=== PATIENT | male | born 1970 | race African-American/Black ===

== ENCOUNTER 2017-01-13 17:36 | Emergency (ER) | payer BC ==
[~2017-01-13] VITALS: Ht 175.3 cm; Wt 95.3 kg
--- NOTE | ~2017-01-13 | EKG ---
[place] [address] [facility] [place] [address] ELECTROCARDIOGRAM REPORT Name: BRENDEN TALBOT Room #: CAITY Brink#: [id number] Admission: 01/13/17 Attend Phys: Discharge: 01/13/17 Date of : 66 Report #: [id number] THIS REPORT FOR: //name// [facility] ED Test Date: 2017-01-13 Test Time: 17:59:18 Pat Name: BRENDEN TALBOT Department: Room: Gender: Senior Software Tester: Xavier MAXWELL : 1970 Requested By: Jani Burgess Order Number: [id number] MD: Nima Proctor Measurements Intervals [place] Rate: 74 P: 69 W[place]: 141 QRS: 40 QRSD: 87 T: 45 QT: 371 QTc: 412 Interpretive Statements Sinus rhythm No significant abnormality No previous ECG available for comparison Electronically Signed On 01-14-2017 8:07:20 CDT by Nima Proctor [email or web address] <ELECTRONICALLY SIGNED> By: Nima Proctor MD, [facility] 01/14/17 0807 1759 1759 Nima Proctor MD, FACC /EPI
[2017-01-13] MEDS ORDERED: PREDNISONE 10 M10 MG PO (17:55)
[2017-01-13 18:15] VITALS: BP 139/85
== END 2017-01-13 18:15 | disposition home or self-care (01) ==
LOC: EDSEX 17:36 → ER 17:36
DX: M54.12 Radiculopathy, cervical region (principal)

== ENCOUNTER 2019-11-21 18:17 | Emergency (ER) | payer BC ==
[~2019-11-21] VITALS: Ht 175.3 cm; Wt 88.5 kg
[~2019-11-21 18:17] MED LIST: PREDNISONE 10 M10 MG PO
[2019-11-21 18:43] LABS: ABSOLUTE NEUTROPHILS 3.6 thou/uL (1.4-8.2); EOSINOPHILS 1.5 % (0.0-3.0); HEMATOCRIT 46.3 % (42.0-52.0); HEMOGLOBIN 15.2 gm/dL (14.0-18.0); LYMPHOCYTES 20.6 % (24.0-44.0); MCH 29.4 pg (26.0-34.0); MCHC 32.9 g/dL (28.0-37.0); MCV 89.5 fL (80.0-100.0); MONOCYTES 4.8 % (1.0-8.0); PLATELET COUNT 206 thou/uL (150-400); POLYS 72.1 % (36.0-66.0); RBC 5.18 mil/uL (4.50-6.00); RDW 14.2 % (10.5-14.5)
[2019-11-21 18:56] LABS: ALBUMIN 3.7 g/dL (3.4-5.0); ANION GAP 8 mmol/L (7-16); BUN 12 mg/dL (7-18); CHLORIDE 103 mmol/L (98-107); CO2 27 mmol/L (21-32); CREATININE 1.2 mg/dL (0.7-1.3); GLUCOSE 147 mg/dL (74-106); POTASSIUM 3.9 mmol/L (3.5-5.1); SGOT 23 U/L (15-37); SGPT 29 U/L (30-65); SODIUM 138 mmol/L (136-145); TOTAL BILIRUBIN 0.4 mg/dL (0.2-1.0); TOTAL PROTEIN 7.6 g/dL (6.4-8.2); TROPONIN-I <0.06 ng/mL (<0.06)
[2019-11-21 19:03] LABS: CALCIUM 9.1 mg/dL (8.5-10.1)
[2019-11-21 19:54] VITALS: BP 123/74
--- NOTE | 2019-11-22 07:48 | EKG ---
[facility] [place] [address] ELECTROCARDIOGRAM REPORT Name: BRENDEN TALBOT Room #: [facility].#: [id number] Admission: 11/21/19 Attend Phys: Discharge: 11/21/19 Date of : 66 Report #: [id number] THIS REPORT FOR: cc: NELLY - No family physician/PCP NELLY - No family physician/PCP Nima Proctor MD [facility] THIS REPORT FOR: //name// [facility] ED Test Date: 2019-11-21 Test Time: 18:21:35 Pat Name: BRENDEN TALBOT Department: Room: Gender: Medical Assistant Per Diem: [facility] : 1970 Requested By: Paresh Baldwin Order Number: [id number] MD: Nima Proctor Measurements Intervals [place] Rate: 72 P: 63 [place]: 158 QRS: 40 QRSD: 91 T: 48 QT: 393 QTc: 431 Interpretive Statements Sinus rhythm No significant abnormality Compared to ECG 01/13/2017 17:59:18 No significant changes Electronically Signed On 11-22-2019 7:47:49 CDT by Nima Proctor [email or web address] <ELECTRONICALLY SIGNED> By: Nima Proctor MD, [facility] [id number] 20 20 Nima Proctor MD, [facility] /EPI
== END 2019-11-21 19:53 | disposition home or self-care (01) ==
LOC: ER 18:17
PROVIDERS: Emergency Medicine
DX: E86.0 Dehydration (principal); Z79.899 Other long term (current) drug therapy